=== PATIENT | female | born 1980 | race Two or more races ===

== ENCOUNTER 2017-07-23 15:11 | Emergency (ER) | payer BC ==
[~2017-07-23] VITALS: Ht 162.6 cm; Wt 54.4 kg
[~2017-07-23 15:11] MED LIST: AMOX TR-K CLV1 EAC2 ORAL; ANTIPYRINE-BENZ14 ML RIGHT EAR; ATIVAN0.5 MG ORAL; AUGMENTIN 875-1 EAC1 ORAL; BENTYL10 MG ORAL; CIPRO500 MG PO; HERBS; IBUPROFEN600 MG ORAL; MOTION-TIME25 MG PO; NORCO 5-325 TA1 EACH ORAL; PHENAZOPYRIDIN200 MG ORAL; PSEUDOEPHEDRINE30 MG PO; TRAMADOL HCL50 MG ORAL; ZOFRAN4 M1 ORAL; ZYRTEC10 MG ORAL
--- NOTE | 2017-07-23 15:16 | Emergency Room Report ---
History of Present Illness General Chief Complaint: Pain Source: Patient Present Illness HPI Patient is a 36-year-old female who presented after increased right-sided flank pain. Patient prior history of renal stones. She reports having sudden onset of flank pain. The patient brought in by EMS. She has no known allergies pain sharp in nature. Patient denies any hematuria. She states she's had a similar type pain. She denies being . Allergies: Coded Allergies: No Known Allergies (Unverified , 01/06/14) Patient History Past Medical History: see triage record Reviewed Nursing Documentation: PMH: Agreed, PSxH: Agreed Nursing Documentation-PMH Hx Asthma: Yes Review of Systems All Other Systems: negative except mentioned in HPI Physical Exam Vital Signs Date Time Temp Pulse Resp B/P (MAP) Pulse Ox O2 Delivery O2 Flow Rate FiO2 07/23/17 15:08 98.5 103 22 121/74 98 Room Air 98.4 Sp02 EP Interpretation: reviewed, normal General Appearance: normal inspection, well appearing, no apparent distress, alert, GCS 15 Head: atraumatic ENT: normal ENT inspection, hearing grossly normal, normal voice Neck: normal inspection, full range of motion, supple, no bony tend Respiratory: normal inspection, lungs clear, normal breath sounds, no respiratory distress, no retraction, no wheezing Cardiovascular #1: regular rate, rhythm, no edema Gastrointestinal: normal inspection, normal bowel sounds, non tender, soft, no guarding, no hernia Genitourinary: no CVA tenderness Musculoskeletal: normal inspection, back normal, normal range of motion Neurologic: normal inspection, alert, responsive, speech normal Psychiatric: normal inspection, judgement/insight normal, mood/affect normal Skin: normal inspection, normal color, no rash Medical Decision Making Diagnostic Impression: Primary Impression: Renal colic ER Course Patient presented for flank pain. Differential diagnosis included was not limited to pneumonia, renal stone, rib fracture, pulmonary embolism, ulcer, enteritis, pyelonephritis among others. Because of complexity of patient's case laboratory testing and imaging studies were ordered.Patient had ultrasound performed which showed evidence of the left renal calcification with mild hydronephrosis. There is no evident right sided hydronephrosis. The patient's symptoms are consistent with renal colic and she had a likely a small stone the right side. The patient was given pain medications. Patient given prescription for antibiotics. The patient is advised to follow up with primary care doctor in 1-2 days. Patient is advised to return if any worsening condition or if any changes in status that are concerning. This report is dictated with [employer] tile edger software which may occasionally lead to discrepancies related to use of this software. Labs Test 07/23/17 15:20 07/23/17 15:50 Urine Color Pale yellow Urine Appearance Clear Urine pH 7 (4.5-8.0) Urine Specific [place] 1.010 (1.005-1.035) Urine Protein Negative (NEGATIVE) Urine Glucose (UA) Negative (NEGATIVE) Urine Ketones Negative (NEGATIVE) Urine Occult Blood 4+ (NEGATIVE) Urine Nitrite Negative (NEGATIVE) Urine Bilirubin Negative (NEGATIVE) Urine Urobilinogen Normal MG/DL (0.0-1.0) Urine Leukocyte Esterase Negative (NEGATIVE) Urine RBC 5-10 /HPF (0 - 2) Urine WBC 0-2 /HPF (0 - 2) Urine Squamous Epithelial Cells Few /LPF (NONE/OCC) Urine Bacteria Few /HPF (NONE) Urine HCG, Qualitative Negative White Blood Count 12.7 K/UL (4.8-10.8) Red Blood Count 4.43 M/UL (4.20-5.40) Hemoglobin 13.4 G/DL (12.0-16.0) Hematocrit 39.6 % (37.0-47.0) Mean Corpuscular Volume 89 FL (80-99) Mean Corpuscular Hemoglobin 30.2 PG (27.0-31.0) Mean Corpuscular Hemoglobin Concent 33.8 G/DL (32.0-36.0) Red Cell Distribution Width 10.8 % (11.6-14.8) Platelet Count 233 K/UL (150-450) Mean Platelet Volume 6.7 FL (6.5-10.1) Neutrophils (%) (Auto) 75.2 % (45.0-75.0) Lymphocytes (%) (Auto) 17.7 % (20.0-45.0) Monocytes (%) (Auto) 3.9 % (1.0-10.0) Eosinophils (%) (Auto) 2.3 % (0.0-3.0) Basophils (%) (Auto) 0.9 % (0.0-2.0) Last Vital Signs Date Time Temp Pulse Resp B/P (MAP) Pulse Ox O2 Delivery O2 Flow Rate FiO2 07/23/17 15:08 98.5 103 22 121/74 98 Room Air 98.4 Status: improved Disposition: HOME, SELF-CARE Condition: Stable Scripts Hydrocodone Bit/Acetaminophen 5-325* (NORCO 5-325*) 1 Each Tablet 1 TAB ORAL Q6H Y for For Pain, #20 TAB 0 Refills Prov: Ayaan Pendleton 07/23/17 Ibuprofen* (MOTRIN*) 600 Mg Tablet 600 MG ORAL Q8H Y for For Pain, #30 TAB 0 Refills Prov: Ayaan Pendleton 07/23/17 Cephalexin* (KEFLEX*) 500 Mg Capsule 500 MG ORAL Q6H, #28 CAP 0 Refills Prov: Ayaan Pendleton 07/23/17 Tamsulosin Hcl (TAMSULOSIN HCL*) 0.4 Mg Cap.er.24h 0.4 MG ORAL BEDTIME, #10 CAP Prov: Ayaan Pendleton 07/23/17 Ayaan Pendleton Jul 23, 2017 15:16
[2017-07-23 15:29] VITALS: BP 121/74
[2017-07-23 15:52] LABS: APPEARANCE,URINE CLEAR; BILIRUBIN, URINE NEGATIVE (NEGATIVE); COLOR,URINE PALE YELLOW; GLUCOSE, URINE (UA) NEGATIVE (NEGATIVE); KETONES,URINE NEGATIVE (NEGATIVE); LEUKOCYTE ESTERASE ,URINE NEGATIVE (NEGATIVE); NITRITE,URINE NEGATIVE (NEGATIVE); PH,URINE 7 (4.5-8.0); PROTEIN,URINE NEGATIVE (NEGATIVE); UROBILINOGEN,URINE NORMAL MG/DL (0.0-1.0)
[2017-07-23] MEDS ORDERED: Acetaminophen 500mg (ES) tab ORAL ONE (16:00)
[2017-07-23] MEDS ORDERED: Ketorolac 30mg Inj IV ONE (16:00)
[2017-07-23 16:08] LABS: BASOPHILS % (AUTO) 0.9 % (0.0-2.0); EOSINOPHILS % (AUTO) 2.3 % (0.0-3.0); HEMATOCRIT 39.6 % (37.0-47.0); HEMOGLOBIN 13.4 G/DL (12.0-16.0); LYMPHOCYTES % (AUTO) 17.7 % (20.0-45.0); MEAN CORPUSCULAR VOLUME 89 FL (80-99); MONOCYTES % (AUTO) 3.9 % (1.0-10.0); NEUTROPHILS % (AUTO) 75.2 % (45.0-75.0); PLATELET COUNT 233 K/UL (150-450); RED BLOOD COUNT 4.43 M/UL (4.20-5.40); RED CELL DISTRIBUTION WIDTH 10.8 % (11.6-14.8); WHITE BLOOD COUNT 12.7 K/UL (4.8-10.8)
[2017-07-23 16:29] LABS: ANION GAP 8 mmol/L (5-15); BLOOD UREA NITROGEN 12 mg/dL (7-18); CALCIUM 9.1 MG/DL (8.5-10.1); CARBON DIOXIDE 26 MMOL/L (21-32); CHLORIDE 105 MMOL/L (98-107); CREATININE 0.9 MG/DL (0.55-1.30); POTASSIUM 5.3 MMOL/L (3.5-5.1); SODIUM 139 MMOL/L (136-145)
[2017-07-23 16:34] LABS: ALANINE AMINOTRANSFERASE 18 U/L (12-78); ALBUMIN 3.3 G/DL (3.4-5.0); ALBUMIN/GLOBULIN RATIO 0.8 (1.0-2.7); ALKALINE PHOSPHATASE 74 U/L (46-116); ASPARTATE AMINO TRANSFERASE 46 U/L (15-37); BILIRUBIN,TOTAL 0.3 MG/DL (0.2-1.0)
[2017-07-23] MEDS ORDERED: NORCO 5-325 TA1 EACH ORAL (17:26)
[2017-07-23] MEDS ORDERED: TAMSULOSIN HCL0.4 MG ORAL (17:26)
[2017-07-23] MEDS ORDERED: IBUPROFEN600 MG ORAL (17:26)
[2017-07-23] MEDS ORDERED: KEFLEX500 MG ORAL (17:26)
[2017-07-23 17:45] VITALS: BP 118/74
--- NOTE | 2017-07-24 08:24 | Diagnostic Imaging Report ---
Indication: Flank pain Technique: Ultrasound of the abdomen. Comparison: None Findings: Liver: The liver is normal in size and echogenicity. No focal abnormalities are noted. Gallbladder: The gallbladder is normal. No stones are visualized. The wall is not thickened. Common bile duct: Normal in size. Pancreas: The visualized portion of pancreas is normal in echogenicity. There are no masses. Kidneys: Right kidney is unremarkable. There is mild fullness of the left renal collecting system. At least one echogenic structure is noted with shadowing within the left kidney. Spleen: The spleen is normal in size and echogenicity. Aorta: The visualized portion of the aorta is normal in caliber. IVC: The demonstrated portion of the inferior vena cava is normal. Impression: Slight fullness of the left renal collecting system. At least one calculus in the left kidney which is nonobstructive. Otherwise negative.
== END 2017-07-23 17:45 | disposition home or self-care (01) ==
LOC: EDBD 15:11 → EMR 17:10
DX: N20.0 Calculus of kidney (principal)
CPT/HCPCS: 36415; 76700; 80053; 81003; 81025; 83690; 85025; 96374; 96375; 99284; J1885; J2405

== ENCOUNTER 2017-09-30 09:29 | Emergency (ER) | payer BC ==
[~2017-09-30] VITALS: Ht 157.5 cm; Wt 58.1 kg
[~2017-09-30 09:29] MED LIST changes: +KEFLEX500 MG ORAL; +TAMSULOSIN HCL0.4 MG ORAL
[2017-09-30] MEDS ORDERED: NKM (09:52)
[2017-09-30 09:54] VITALS: BP 98/56
[2017-09-30] MEDS ORDERED: Ciprofloxacin 500mg tab ORAL ONE (10:15)
--- NOTE | 2017-09-30 10:25 | Emergency Room Report ---
History of Present Illness General Chief Complaint: Earache Source: Patient Present Illness HPI The patient presents with L ear pain. This has been for the last 24 hours. Prior to this, she had itching in both ears and was cleaning them with hydrogen peroxide. At one point, she used cold water and had resultant vertigo lasting a short time with nausea. This passed. The pain is when the ear it touched or moved. There is pain behind the ear also. No sore throat or URI sy. No fevers or rash. No chest pain, abdominal pain. She states she is not . Allergies: Coded Allergies: No Known Allergies (Unverified , 01/06/14) Patient History Past Medical History: see triage record Social History: Denies: smoking Social History Narrative working Last Menstrual Period: 2 weeks ago Now: No Reviewed Nursing Documentation: PMH: Agreed; PSxH: Agreed Nursing Documentation-PMH Past Medical History: No Stated History Hx Asthma: Yes Review of Systems All Other Systems: negative except mentioned in HPI Physical Exam Vital Signs Date Time Temp Pulse Resp B/P (MAP) Pulse Ox O2 Delivery O2 Flow Rate FiO2 09/30/17 09:50 98.0 84 16 98/56 98 Room Air 98.1 Sp02 EP Interpretation: reviewed, normal General Appearance: well appearing, no apparent distress Head: normocephalic, atraumatic Eyes: bilateral eye normal inspection, bilateral eye PERRL ENT: hearing grossly normal, normal pharynx, normal voice, moist mucus membranes, other - tenderness with pinna movement L canal slightly erythematous , TMs normal Neck: full range of motion, supple Respiratory: no respiratory distress, speaking full sentences Cardiovascular #1: regular rate, rhythm Gastrointestinal: normal inspection Musculoskeletal: digits/nails normal, gait/station normal Neurologic: alert, normal gait, grossly normal Psychiatric: mood/affect normal Skin: no rash Medical Decision Making Diagnostic Impression: Primary Impression: External otitis of left ear Qualified Codes: H60.392 - Other infective otitis externa, left ear ER Course Patient with L ear pain. No URI sy. DDx: OE, OM, mastoiditis amongst others. Exam c/w OE. Patient given cipro and analgesia. Patient stable for outpatient observation and treatment. Last Vital Signs Date Time Temp Pulse Resp B/P (MAP) Pulse Ox O2 Delivery O2 Flow Rate FiO2 09/30/17 11:08 98.1 84 16 98/56 98 Room Air 98.1 Status: improved Disposition: HOME, SELF-CARE Condition: Improved Scripts Ibuprofen* (MOTRIN*) 600 Mg Tablet 600 MG ORAL Q6H PRN for For Pain, #20 TAB Prov: Roni Claire M.D. 09/30/17 Ciprofloxacin Hcl* (CIPROFLOXACIN HCL*) 500 Mg Tablet 500 MG ORAL Q12H, #14 TAB 0 Refills Prov: Roni Claire M.D. 09/30/17 Roni Claire M.D. September 30, 2017 10:25
[2017-09-30] MEDS ORDERED: CIPROFLOXACIN500 M2 ORAL (10:30)
[2017-09-30] MEDS ORDERED: IBUPROFEN600 MG ORAL (10:30)
[2017-09-30 11:08] VITALS: BP 98/56
== END 2017-09-30 10:40 | disposition home or self-care (01) ==
LOC: EMR 10:36
DX: H60.92 Unspecified otitis externa, left ear (principal); J45.909 Unspecified asthma, uncomplicated
CPT/HCPCS: 99284